=== PATIENT | female | born 1990 | race Caucasian/White ===

== ENCOUNTER → 2020-09-09 | Outpatient (CLI) | payer OTHER ==
[~2020-09-09] MED LIST: CRANBERRY500 M3 PO; FLONASE ALLER15.8 ML; HYDROCODON-ACE1 EAC4 PO; LO LOESTRIN FE1 EACH PO; PEPCID40 MG PO; PROZAC20 MG PO; TOPAMAX25 MG PO; ZOFRAN4 MG PO; ZYRTEC10 MG PO
== END ==
LOC: CT 10:30
DX: R10.9 Unspecified abdominal pain (principal)
CPT/HCPCS: Q9967

== ENCOUNTER → 2020-09-21 | Outpatient (CLI) | payer OTHER | LOC: LAB 08:44 | DX: R10.11 Right upper quadrant pain (principal) | CPT/HCPCS: 36415; 80076; 82150; 83690 ==

== ENCOUNTER → 2020-09-28 | Outpatient (CLI) | payer OTHER | LOC: KOH-I 09-17 08:00 | DX: G43.909 Migraine, unspecified, not intractable, without status migrainosus (principal) | CPT/HCPCS: 70551 ==

== ENCOUNTER → 2020-10-28 | Outpatient (CLI) | payer OTHER | LOC: KOH-I 08:00 | DX: R10.13 Epigastric pain (principal) | CPT/HCPCS: 76700 ==

== ENCOUNTER → 2020-11-16 | Outpatient (CLI) | payer OTHER | LOC: NM 09:00 | DX: R10.11 Right upper quadrant pain (principal); N28.9 Disorder of kidney and ureter, unspecified | CPT/HCPCS: 74018; 78227; A9537; J2805 ==

== ENCOUNTER → 2021-01-21 | Day surgery (SDC) | payer OTHER | END | disposition home or self-care (01) | LOC: OR 05:52 | DX: K81.1 Chronic cholecystitis (principal); K21.9 Gastro-esophageal reflux disease without esophagitis; F32.9 Major depressive disorder, single episode, unspecified; G43.909 Migraine, unspecified, not intractable, without status migrainosus; F41.9 Anxiety disorder, unspecified; E66.9 Obesity, unspecified; Z68.38 Body mass index [BMI] 38.0-38.9, adult; Z79.899 Other long term (current) drug therapy | CPT/HCPCS: 84703; J0690; J1100; J1170; J2001; J2250; J2405; J2704; J2710; J2765; J3010; J7030; J7120 ==

== ENCOUNTER → 2021-06-14 | Outpatient (CLI) | payer OTHER | LOC: KOH-I 08:58 → RAD 08:58 | DX: N20.0 Calculus of kidney (principal); K59.00 Constipation, unspecified | CPT/HCPCS: 74018 ==

== ENCOUNTER 2022-01-08 09:22 | Emergency (ER) | payer OTHER ==
[2022-01-08 10:02] LABS: HEMOGLOBIN 13.3 gm/dl (12.3-15.3); RED BLOOD COUNT 4.97 M/UL (4.00-5.10); WHITE BLOOD COUNT 8.2 K/UL (4.5-11.0)
[2022-01-08 10:26] LABS: BUN/CREATININE RATIO 15 (0-10)
== END 2022-01-08 11:50 | disposition home or self-care (01) ==
LOC: ER1 09:22
PROVIDERS: Emergency Medicine
DX: R10.31 Right lower quadrant pain (principal); R10.32 Left lower quadrant pain; Z87.442 Personal history of urinary calculi
CPT/HCPCS: 80053; 81001; 83690; 84703; 85025; 87086; 96374; 96375; 99284; J2270; J2405; Q9967